=== PATIENT | male | born 1970 | race Caucasian/White ===

== ENCOUNTER 2019-08-04 16:55 | Emergency (ER) | payer MEDICAID ==
[~2019-08-04] VITALS: Ht 167.6 cm; Wt 72.6 kg
[2019-08-04 18:05] VITALS: Ht 167.6 cm; Wt 72.6 kg
[2019-08-04 21:29] VITALS: BP 146/80
== END 2019-08-04 21:29 | disposition home or self-care (01) ==
LOC: ED 16:55
DX: M70.52 Other bursitis of knee, left knee (principal); M19.072 Primary osteoarthritis, left ankle and foot; Y93.89 Activity, other specified
CPT/HCPCS: J1885